=== PATIENT | female | born 1995 | race Caucasian/White ===

== ENCOUNTER 2021-06-30 13:19 | Outpatient (CLI) | payer OTHER ==
[~2021-06-30 13:19] MED LIST: LOTRISONE CREAM45 GM TP
== END 2021-06-30 15:00 | disposition home or self-care (01) ==
LOC: PRENATAL 13:19
PROVIDERS: ATTEND Obstetrics & Gynecology Maternal & Fetal Medicine
DX: O36.80X0 Pregnancy with inconclusive fetal viability, not applicable or unspecified (principal); Z36.9 Encounter for antenatal screening, unspecified

== ENCOUNTER 2021-08-06 15:14 | Outpatient (CLI) | payer OTHER | END 2021-08-06 17:02 | disposition home or self-care (01) | LOC: PRENATAL 15:14 | PROVIDERS: ATTEND Obstetrics & Gynecology Maternal & Fetal Medicine | DX: O26.849 Uterine size-date discrepancy, unspecified trimester (principal); O42.90 Premature rupture of membranes, unspecified as to length of time between rupture and onset of labor, unspecified weeks of gestation; O41.00X0 Oligohydramnios, unspecified trimester, not applicable or unspecified ==

== ENCOUNTER 2021-08-25 12:48 | Outpatient (CLI) | payer OTHER | END 2021-08-25 14:15 | disposition home or self-care (01) | LOC: PRENATAL 12:48 | PROVIDERS: ATTEND Obstetrics & Gynecology Maternal & Fetal Medicine | DX: O35.3XX0 Maternal care for (suspected) damage to fetus from viral disease in mother, not applicable or unspecified (principal); Z3A.20 20 weeks gestation of pregnancy ==

== ENCOUNTER 2021-11-16 09:14 | Outpatient (CLI) | payer OTHER | END 2021-11-16 11:30 | disposition home or self-care (01) | LOC: PRENATAL 09:14 | PROVIDERS: ATTEND Obstetrics & Gynecology Maternal & Fetal Medicine | DX: O26.849 Uterine size-date discrepancy, unspecified trimester (principal); O35.0XX0 Maternal care for (suspected) central nervous system malformation in fetus, not applicable or unspecified; Z3A.32 32 weeks gestation of pregnancy ==

== ENCOUNTER 2021-12-14 11:31 | Outpatient (CLI) | payer OTHER ==
[2021-12-15] MEDS ORDERED: PRENATAL + DHA1 EAC1 PO (02:25)
[2021-12-15] MEDS ORDERED: METFORMIN HCL500 M4 PO (02:29)
== END 2021-12-14 12:02 | disposition home or self-care (01) ==
LOC: NST 11:31
PROVIDERS: ATTEND Obstetrics & Gynecology
DX: Z34.83 Encounter for supervision of other normal pregnancy, third trimester (principal)

== ENCOUNTER 2021-12-15 01:40 | Outpatient (CLI) | payer OTHER ==
[2021-12-15] MEDS ORDERED: PRENATAL + DHA1 EAC1 PO (02:25)
[2021-12-15] MEDS ORDERED: METFORMIN HCL500 M4 PO (02:29)
== END 2021-12-15 15:15 | disposition home or self-care (01) ==
LOC: OBS/DEL 01:40
PROVIDERS: ATTEND Student in an Organized Health Care Education/Training Program
DX: O24.419 Gestational diabetes mellitus in pregnancy, unspecified control (principal); Z3A.36 36 weeks gestation of pregnancy; A08.8 Other specified intestinal infections

== ENCOUNTER 2024-08-02 21:45 | Emergency (ER) | payer OTHER ==
[~2024-08-02] VITALS: Ht 162.6 cm; Wt 79.4 kg
[~2024-08-02 21:45] MED LIST changes: +METFORMIN HCL500 M3 PO; +METFORMIN HCL500 M4 PO; +PRENATAL + DHA1 EAC1 PO; +PRENATAL TABLE1 EAC6 PO
[2024-08-02 23:27] LABS: HEMATOCRIT 35.7 % (36.0-45.00); HEMOGLOBIN 11.9 g/dL (12.0-15.00); MEAN CELL VOLUME 81.6 fL (80.00-100.00); MEAN CORPUSCULAR HEMOGLOBIN 27.1 pg (27.00-32.0); MEAN CORPUSCULAR HGB CONC 33.2 g/dl (32.0-36.0); PLATELET COUNT 270 K/uL (150-450); RED BLOOD COUNT 4.38 M/uL (4.00-6.00); RED CELL DISTRIBUTION WIDTH 14.6 % (11.5-14.5)
[2024-08-03 00:51] LABS: PH,URINE 6.5 (5.0-8.0); URINE APPEARANCE Clear; URINE BILIRRUBIN Negative (NEGATIVE); URINE BLOOD Large; URINE COLOR Yellow; URINE GLUCOSE Negative (NEGATIVE); URINE KETONE Negative (NEGATIVE); URINE LEUKOCYTE Small; URINE NITRATE Negative; URINE PROTEIN Trace (NEGATIVE)
[2024-08-03 00:57] LABS: URINE BACTERIA 504.2 uL (0.0-1933); URINE EPITHELIAL CELLS 13.4 uL (0.0-38.8); URINE RBC 3223.5 uL (0.0-20.8); URINE WBC 73.9 uL (0.0-23.2)
[2024-08-03 01:21] LABS: PARTIAL THROMBOPLASTIN TIME 28.2 SECONDS (22.0-34.0); PROTHROMBIN TIME 10.9 SECONDS (9.0-11.5)
[2024-08-03 01:47] LABS: ALBUMIN 3.6 gm/dL (3.4-5.0); BILIRUBIN TOTAL 0.38 mg/dL (0.3-1.2); CALCIUM 8.9 mg/dL (8.5-10.1); CREATININE SERUM 0.59 mg/dL (0.55-1.02); GFR 119.68; GLOBULINA 3.8 G/DL (2.4-3.5); POTASSIUM 3.42 mEq/L (3.5-5.1); TOTAL PROTEIN 7.4 gm/dL (6.4-8.2)
== END 2024-08-03 10:03 | disposition home or self-care (01) ==
LOC: ER 21:47
PROVIDERS: General Practice
DX: O20.8 Other hemorrhage in early pregnancy (principal); Z3A.01 Less than 8 weeks gestation of pregnancy; Z20.822 Contact with and (suspected) exposure to COVID-19